=== PATIENT | male | born 1945 | race Caucasian/White ===

== ENCOUNTER 2018-07-13 07:56 | Outpatient (CLI) | payer MEDICARE ==
[2018-07-13] VITALS (19 sets, daily range): BP systolic 126–159; BP diastolic 72–85
== END 2018-07-13 23:59 | disposition home or self-care (01) ==
LOC: CARD DIAG 07:56
PROVIDERS: ATTEND Physician Assistant
DX: R55 Syncope and collapse (principal)
CPT/HCPCS: 93660

== ENCOUNTER 2020-01-02 04:08 | Outpatient (CLI) | payer MEDICARE, MEDICAID | END 2020-01-02 23:59 | disposition home or self-care (01) | LOC: DIABETIC 04:08 | PROVIDERS: ATTEND Specialist | DX: E11.65 Type 2 diabetes mellitus with hyperglycemia (principal); I10 Essential (primary) hypertension; E78.2 Mixed hyperlipidemia | CPT/HCPCS: G0108 ==

== ENCOUNTER 2020-01-30 04:09 | Outpatient (CLI) | payer MEDICARE, MEDICAID | END 2020-01-30 23:59 | disposition home or self-care (01) | LOC: DIABETIC 04:09 | PROVIDERS: ATTEND Specialist | DX: E11.9 Type 2 diabetes mellitus without complications (principal); E66.01 Morbid (severe) obesity due to excess calories; Z68.43 Body mass index [BMI] 50.0-59.9, adult; Z71.3 Dietary counseling and surveillance | CPT/HCPCS: G0108 ==